=== PATIENT | male | born 1970 | race Caucasian/White ===

== ENCOUNTER 2022-06-03 09:37 | Emergency (ER) | payer OTHER ==
[~2022-06-03] VITALS: Ht 180.3 cm; Wt 87.0 kg
[~2022-06-03 09:37] MED LIST: CLON0.1T PO; LISI20TA31 PO; MECL-217 PO
[2022-06-03 10:23] LABS: BASOPHILS % 0.3 % (0.0-2.0); EOSINOPHILS % 1.1 % (0.0-5.0); HEMATOCRIT. 37.6 % (42.0-52.0); HEMOGLOBIN. 13.1 g/dL (14.0-18.0); LYMPHOCYTES % 15.8 % (20.0-50.0); MEAN CORPUSCULAR HEMOGLOBIN 29.9 pg (28.0-32.0); MEAN CORPUSCULAR VOLUME 85.6 fL (80.0-94.0); MEAN PLATELET VOLUME 8.4 fl (7.4-10.4); MONOCYTES % 10.5 % (2.0-8.0); NEUTROPHILS % 72.3 % (40.0-76.0); PLATELET 237 x1000/uL (130-400); RED BLOOD CELL COUNT 4.39 mill/uL (4.7-6.1); RED CELL DISTRIBUTION WIDTH 13.2 % (11.6-14.6)
[2022-06-03 10:29] LABS: CHLORIDE 102 mEq/L (98-107)
[2022-06-03 10:37] LABS: ETHANOL BLOOD < 10 mg/dL
[2022-06-03] MEDS ORDERED: INSULIN REGULAR (HUMULIN R) 300UNITS/3ML VIAL SUBCUT NR (11:00)
[2022-06-03] MEDS ORDERED: AMLODIPINE 5MG TABLET PO NR (11:00)
[2022-06-03] MEDS ORDERED: ASPIRIN 325MG EC TABLET PO NR (11:00)
[2022-06-03] MEDS ORDERED: SODIUM CHLORIDE 0.9% 500 ML IV ONE (11:00)
[2022-06-03] MEDS ORDERED: LISI20TA31 MT (12:10)
[2022-06-03] MEDS ORDERED: ASPI-1497 MT (12:10)
[2022-06-03] MEDS ORDERED: CLON-457 MT (12:10)
[2022-06-03 12:22] VITALS: BP 166/109
== END 2022-06-03 12:48 | disposition left against medical advice (07) ==
LOC: ER 09:37 → CANBEDREQ 06-05 03:51
DX: R77.8 Other specified abnormalities of plasma proteins (principal); I10 Essential (primary) hypertension; G62.9 Polyneuropathy, unspecified; E11.65 Type 2 diabetes mellitus with hyperglycemia; Z79.899 Other long term (current) drug therapy
CPT/HCPCS: 36415; 70450; 71045; 80053; 80320; 82962; 83880; 84484; 85025; 93005; 96360; 96372; 99285; J1815; G0480

== ENCOUNTER 2024-01-26 09:09 | Emergency (ER) | payer MEDICARE, MEDICAID ==
[~2024-01-26] VITALS: Ht 188 cm; Wt 96.0 kg
[~2024-01-26 09:09] MED LIST changes: +ASPI-1497 MT; +CLON-493 MT; +LISI20TA31 MT
[2024-01-26 09:11] VITALS: O2SAT 97
[2024-01-26 10:03] LABS: POTASSIUM 3.9 mEq/L (3.5-5.1)
[2024-01-26 10:04] LABS: CALCIUM 9.4 mg/dL (8.7-10.4)
[2024-01-26 10:09] LABS: CREATININE 1.3 mg/dL (0.6-1.3)
[2024-01-26] MEDS ORDERED: LISI30TA36 MT (10:24)
[2024-01-26] MEDS ORDERED: CLON0.1T PO (10:24)
[2024-01-26] MEDS ORDERED: LISI20TA31 PO (10:24)
[2024-01-26 10:52] VITALS: BP 158/87; PULSE 90; RESP 16; TEMP 36.83628; O2SAT 97
== END 2024-01-26 13:30 | disposition home or self-care (01) ==
LOC: ER 09:09
DX: I10 Essential (primary) hypertension (principal)
CPT/HCPCS: 36415; 80048; 99284